=== PATIENT | male | born 1945 | race Caucasian/White ===

== ENCOUNTER → 2020-08-19 | Outpatient (CLI) | payer MEDICARE ==
[~2020-08-19] MED LIST: BLOO1KIT74 TP; HYDR-4001 MT; LEVO750T21 MT; LORA-250 PO; MIDO5TAB4 MT
== END | disposition home or self-care (01) ==
LOC: CT 10:22
PROVIDERS: ATTEND Urology
DX: N28.1 Cyst of kidney, acquired (principal); N20.0 Calculus of kidney; I70.0 Atherosclerosis of aorta; K42.9 Umbilical hernia without obstruction or gangrene; N21.0 Calculus in bladder
CPT/HCPCS: 74176

== ENCOUNTER 2020-08-21 06:30 | Inpatient (IN) | payer MEDICARE ==
[~2020-08-21] VITALS: Ht 177.8 cm; Wt 88.0 kg
[2020-08-21] MEDS ORDERED: ONDANSETRON HCL 4MG/2ML INJ IV STA (07:50)
[2020-08-21] MEDS ORDERED: SODIUM CHLORIDE 0.9% 1,000 ML IV ONE ×3 (08:00→10:00)
[2020-08-21] MEDS: MORPHINE SULFATE 4 MG/ML CPJ (NOT FOR IM USE) IV STA ×2 (09:05→09:10)
[2020-08-21] MEDS ORDERED: PIPERACILLIN/TAZ 3.375G PREMIX 50 ML IV ONE (10:00)
[2020-08-21] MEDS ORDERED: VANCOMYCIN 1 G PREMIX 200 ML IV ONE (10:00)
[2020-08-21 11:34] LABS: BASOPHILS % 0.8 % (0.0-2.0); HEMATOCRIT. 26.5 % (42.0-52.0); HEMOGLOBIN. 8.9 g/dL (14.0-18.0); INR 1.1; LYMPHOCYTES % 23.6 % (20.0-50.0); MEAN CORPUSCULAR HEMOGLOBIN 29.3 pg (28.0-32.0); MEAN CORPUSCULAR VOLUME 87.2 fL (80.0-94.0); MEAN PLATELET VOLUME 6.9 fl (7.4-10.4); MONOCYTES % 8.1 % (2.0-8.0); NEUTROPHILS % 66.5 % (40.0-76.0); PARTIAL THROMBOPLASTIN TIME 27.6 sec (23.4-31.0); PLATELET 412 x1000/uL (130-400); PROTHROMBIN TIME 11.4 sec (9.6-11.0); RED BLOOD CELL COUNT 3.04 mill/uL (4.7-6.1); RED CELL DISTRIBUTION WIDTH 17.8 % (11.6-14.6)
[2020-08-21 11:36] LABS: CHLORIDE 108 mEq/L (98-107)
[2020-08-21] MEDS ORDERED: KETOROLAC 15MG/ML VIAL IV ONE (12:00)
[2020-08-21] MEDS ORDERED: ONDANSETRON HCL 4MG/2ML INJ IV PRN (13:00)
[2020-08-21 13:06] LABS: CLARITY URINE TURBID (CLEAR); COLOR URINE YELLOW (YELLOW); KETONES URINE NEGATIVE (NEGATIVE); LEUKOCYTE ESTERASE URINE 3+ (NEGATIVE); NITRITE URINE NEGATIVE (NEGATIVE); OCCULT BLOOD URINE 1+ (NEGATIVE); PH URINE 6.5 (4.5-8.0); PROTEIN URINE 2+ (NEGATIVE); SPECIFIC GRAVITY URINE 1.013 (1.005-1.030); UROBILINOGEN URINE 0.2 E.U./dL (0.2-1.0)
[2020-08-21] MEDS ORDERED: VANCOMYCIN 1 G PREMIX 200 ML IV SCH (14:30)
[2020-08-21 15:15] VITALS: BP_SYST 105; BP_SYST 108; BP_DIAS 69; BP_DIAS 72
[2020-08-21 16:00] VITALS: BP 111/68
[2020-08-21] MEDS ORDERED: PIPERACILLIN/TAZOBACTAM 2.25 G in DEXTROSE 5% WATER 50 ML IV SCH (17:00)
[2020-08-21 18:00] VITALS: BP 111/59
[2020-08-21] MEDS: ENOXAPARIN 30MG/0.3ML SYR SUBCUT SCH (18:34)
[2020-08-21] MEDS ORDERED: DEXTROSE 50% WATER 50ML SYRINGE IV PRN (19:45)
[2020-08-21 20:00] VITALS: BP 118/70
[2020-08-21] MEDS: BLOOD SUGAR DIAGNOSTIC STRIP TEST SCH (20:01)
[2020-08-21] MEDS: INSULIN LISPRO 100 UNITS/ML SUBCUT SCH (21:00)
[2020-08-21] MEDS: SODIUM CHLORIDE 0.9% 1,000 ML IV SCH (21:52)
[2020-08-21 22:00] VITALS: BP 110/51
[2020-08-21] MEDS: LORAZEPAM 1MG TABLET PO PRN (23:21)
[2020-08-22] VITALS (12 sets, daily range): BP systolic 88–114; BP diastolic 53–92
[2020-08-22] MEDS: SODIUM CHLORIDE 0.9% 1,000 ML IV SCH ×3 (06:32→21:34)
[2020-08-22] MEDS: BLOOD SUGAR DIAGNOSTIC STRIP TEST SCH ×2 (06:37→08:42)
[2020-08-22 06:39] LABS: BASOPHILS % 0.8 % (0.0-2.0); EOSINOPHILS % 3.1 % (0.0-5.0); HEMATOCRIT. 31.5 % (42.0-52.0); HEMOGLOBIN. 10.3 g/dL (14.0-18.0); LYMPHOCYTES % 14.3 % (20.0-50.0); MEAN CORPUSCULAR HEMOGLOBIN 28.4 pg (28.0-32.0); MEAN PLATELET VOLUME 7.1 fl (7.4-10.4); MONOCYTES % 9.3 % (2.0-8.0); NEUTROPHILS % 72.5 % (40.0-76.0); PLATELET 322 x1000/uL (130-400); RED BLOOD CELL COUNT 3.62 mill/uL (4.7-6.1); RED CELL DISTRIBUTION WIDTH 17.7 % (11.6-14.6)
[2020-08-22] MEDS: INSULIN LISPRO 100 UNITS/ML SUBCUT SCH (07:20)
[2020-08-22] MEDS: PIPERACILLIN/TAZOBACTAM 2.25 G in DEXTROSE 5% WATER 50 ML IV SCH ×3 (09:22→21:34)
[2020-08-22] MEDS: MIDODRINE HCL 5MG TABLET PO SCH ×3 (11:03→16:57)
[2020-08-22] MEDS: ENOXAPARIN 30MG/0.3ML SYR SUBCUT SCH (14:27)
[2020-08-22] MEDS: ACETAMINOPHEN 325MG TABLET PO PRN ×2 (15:28→21:33)
[2020-08-22] MEDS ORDERED: VANCOMYCIN 1 G PREMIX 200 ML IV SCH (18:00)
[2020-08-22] MEDS: LORAZEPAM 1MG TABLET PO PRN (21:34)
[2020-08-23] VITALS (15 sets, daily range): BP systolic 96–136; BP diastolic 55–80
[2020-08-23] MEDS: PIPERACILLIN/TAZOBACTAM 2.25 G in DEXTROSE 5% WATER 50 ML IV SCH ×4 (02:48→19:57)
[2020-08-23] MEDS: SODIUM CHLORIDE 0.9% 1,000 ML IV SCH ×3 (04:48→21:06)
[2020-08-23] MEDS: ACETAMINOPHEN 325MG TABLET PO PRN ×3 (05:44→23:03)
[2020-08-23 07:17] LABS: BASOPHILS % 0.6 % (0.0-2.0); EOSINOPHILS % 4.1 % (0.0-5.0); HEMATOCRIT. 29.1 % (42.0-52.0); HEMOGLOBIN. 9.9 g/dL (14.0-18.0); LYMPHOCYTES % 27.5 % (20.0-50.0); MEAN CORPUSCULAR HEMOGLOBIN 29.5 pg (28.0-32.0); MEAN CORPUSCULAR VOLUME 86.5 fL (80.0-94.0); MEAN PLATELET VOLUME 7.4 fl (7.4-10.4); MONOCYTES % 10.4 % (2.0-8.0); NEUTROPHILS % 57.4 % (40.0-76.0); PLATELET 326 x1000/uL (130-400); RED BLOOD CELL COUNT 3.36 mill/uL (4.7-6.1)
[2020-08-23] MEDS: MIDODRINE HCL 5MG TABLET PO SCH ×3 (09:00→17:09)
[2020-08-23] MEDS: GABAPENTIN 100MG CAPSULE PO SCH ×2 (14:25→21:06)
[2020-08-23] MEDS: ENOXAPARIN 30MG/0.3ML SYR SUBCUT SCH (17:02)
[2020-08-23] MEDS: VANCOMYCIN 1 G PREMIX 200 ML IV SCH (21:06)
[2020-08-23] MEDS: LORAZEPAM 1MG TABLET PO PRN (23:03)
[2020-08-24] VITALS (11 sets, daily range): BP systolic 98–143; BP diastolic 61–85
[2020-08-24] MEDS: PIPERACILLIN/TAZOBACTAM 2.25 G in DEXTROSE 5% WATER 50 ML IV SCH ×3 (02:18→13:14)
[2020-08-24] MEDS: GABAPENTIN 100MG CAPSULE PO SCH ×3 (06:19→22:28)
[2020-08-24] MEDS: SODIUM CHLORIDE 0.9% 1,000 ML IV SCH ×2 (06:20→13:15)
[2020-08-24 07:30] LABS: BASOPHILS % 0.9 % (0.0-2.0); EOSINOPHILS % 5.6 % (0.0-5.0); HEMATOCRIT. 29.6 % (42.0-52.0); HEMOGLOBIN. 9.9 g/dL (14.0-18.0); LYMPHOCYTES % 32.8 % (20.0-50.0); MEAN CORPUSCULAR HEMOGLOBIN 28.8 pg (28.0-32.0); MEAN CORPUSCULAR VOLUME 86.3 fL (80.0-94.0); MEAN PLATELET VOLUME 7.2 fl (7.4-10.4); MONOCYTES % 8.5 % (2.0-8.0); NEUTROPHILS % 52.2 % (40.0-76.0); PLATELET 340 x1000/uL (130-400); RED BLOOD CELL COUNT 3.43 mill/uL (4.7-6.1); RED CELL DISTRIBUTION WIDTH 17.8 % (11.6-14.6)
[2020-08-24] MEDS: MIDODRINE HCL 5MG TABLET PO SCH ×4 (08:59→17:48)
[2020-08-24] MEDS ORDERED: ENOXAPARIN 40MG/0.4ML SYR SUBCUT SCH (09:00)
[2020-08-24] MEDS ORDERED: ENOXAPARIN 30MG/0.3ML SYR SUBCUT SCH (09:00)
[2020-08-24] MEDS: ACETAMINOPHEN 325MG TABLET PO PRN (13:14)
[2020-08-24] MEDS: LORAZEPAM 1MG TABLET PO PRN (13:15)
[2020-08-24] MEDS ORDERED: PIPERACILLIN/TAZOBACTAM 3.375 G in DEXT 5% WATER 100 ML IV SCH (18:00)
[2020-08-24] MEDS: VANCOMYCIN 1 G PREMIX 200 ML IV SCH (21:28)
[2020-08-25] MEDS ORDERED: ATOR40TA70 PO (02:27)
[2020-08-25] MEDS ORDERED: ASCO500C18 MT (02:27)
[2020-08-25] MEDS ORDERED: ERGO400T7 MT (02:27)
[2020-08-25] MEDS ORDERED: MAGN400C MT (02:27)
[2020-08-25] MEDS ORDERED: VITA1CAP PO (02:27)
[2020-08-25] MEDS ORDERED: ACET-2708 PO (02:28)
== END 2020-08-24 23:10 | DRG 871 ==
LOC: ER 06:43 → ENRESERV 14:09 → 3WST 16:24
PROVIDERS: ADMIT Internal Medicine; ATTEND Internal Medicine
DX: A41.9 Sepsis, unspecified organism (principal); N17.0 Acute kidney failure with tubular necrosis; N39.0 Urinary tract infection, site not specified; L03.312 Cellulitis of back [any part except buttock and flank]; L89.159 Pressure ulcer of sacral region, unspecified stage; R33.8 Other retention of urine; N40.1 Benign prostatic hyperplasia with lower urinary tract symptoms; D64.9 Anemia, unspecified; I25.10 Atherosclerotic heart disease of native coronary artery without angina pectoris; J44.9 Chronic obstructive pulmonary disease, unspecified; I12.9 Hypertensive chronic kidney disease with stage 1 through stage 4 chronic kidney disease, or unspecified chronic kidney disease; N18.9 Chronic kidney disease, unspecified; Z96.0 Presence of urogenital implants; R53.81 Other malaise; R26.9 Unspecified abnormalities of gait and mobility; Z20.828 Contact with and (suspected) exposure to other viral communicable diseases; Z87.442 Personal history of urinary calculi; Z79.2 Long term (current) use of antibiotics; Z90.49 Acquired absence of other specified parts of digestive tract; Z79.891 Long term (current) use of opiate analgesic; Z79.899 Other long term (current) drug therapy
CPT/HCPCS: 36415; 71045; 74176; 80048; 80053; 80202; 81003; 82962; 83605; 85025; 87426; 93005; 97116; 97162; 97166; 99285; J1650; J1885; J2270; J2405; J2543; J3370; J7030; J7060; A4315